=== PATIENT | male | born 1985 | race Caucasian/White ===

== ENCOUNTER 2019-02-22 08:38 | Emergency (ER) | payer BC, SELFPAY ==
[2019-02-22 08:39] VITALS: BP 169/97; PULSE 87; RESP 18; TEMP 36.6; O2SAT 100; BMI 26.6
--- NOTE | 2019-02-22 08:51 | RAD_ITS ---
STUDY: X-RAY - RIGHT HAND REASON FOR EXAM: Male, 33 years old. Crush injury to the thumb. TECHNIQUE: 3 view(s) of the hand. COMPARISON: None. FINDINGS: Normal radiocarpal articulation. Normal distal radioulnar joint. Normal visualized carpal bones. Normal carpal articulations Normal carpometacarpal articulation of the thumb. Normal second through fifth carpometacarpal joints. Normal metacarpi. Normal metacarpophalangeal joint of the thumb. Normal interphalangeal joint of the thumb. Normal proximal and distal phalanges of the thumb. Normal metacarpophalangeal joints of the second through fifth fingers. Normal proximal and distal interphalangeal joints of the second through fifth fingers. Normal phalanges of the second through fifth fingers. The soft tissue structures are unremarkable. RAD/Hand Min 3 Views IMPRESSION: Normal x-ray examination of the hand. Electronically Signed: Andreas Earl, at 9:34 EDT , Service support ,
[2019-02-22] MEDS: Naproxen 500 MG Tablet PO (09:15)
--- NOTE | 2019-02-22 09:42 | ED.DCSUM_ITS ---
- ER Visit Summary Date of Service: 02/22/19 Chief Complaint: Right thumb pain History of Present Illness: The patient is a 33 M who has a right thumb injury. He smashed his thumb while working last night. He smashed it on a wall. He took nothing for it. Pain is worse with movement. Tetanus is less than 5 years. Physical Examination: Vital signs reviewed. Right hand exam reveals a puncture wound on the pad of the thumb. He has diffuse tenderness to palpation. There is a less than 25% subungual hematoma. Test Results: X-ray reveals no fractures Emergency Department Course and Treatment: The patient's right thumb was soaked. I did visualize it after cleaning it. There is a small puncture wound on the pad of the thumb. I will leave this open as it is draining a small amount of blood. His subungual hematoma does not need to be trephinated. Patient will have a clean dressing placed. He will take naproxen for pain at home. He will follow-up with his PCP Treatment Plan: [] Disposition: Discharge Impression: Right thumb contusion This note was generated with [employer] dictation software. It may contain incorrect words, spelling, and punctuation that were not noted in review of the chart prior to signing ED Disposition - Plan for ED Patient: Referrals: Carlos Haynes MD [Primary Care Provider] -
--- NOTE | 2019-02-22 09:42 | ED.DEP ---
ED Disposition - Plan for ED Patient: Disposition: Home or Assisted Living Instructions: Subungual Hematoma, ED Contusion Upper Ext Referrals: Carlos Haynes MD [Primary Care Provider] -
== END 2019-02-22 10:55 | disposition home or self-care (01) ==
PROVIDERS: Emergency Provider Emergency Medicine; Family Provider Family Medicine; PCP Family Medicine
DX: S60.111A Contusion of right thumb with damage to nail, initial encounter (principal); S61.131A Puncture wound without foreign body of right thumb with damage to nail, initial encounter; X58.XXXA Exposure to other specified factors, initial encounter; Y93.89 Activity, other specified; Y92.9 Unspecified place or not applicable; Y99.0 Civilian activity done for income or pay
CPT/HCPCS: 73130; 99282